=== PATIENT | female | born 1995 | race Caucasian/White ===

== ENCOUNTER 2020-07-03 09:03 | Emergency (ER) | payer OTHER ==
[~2020-07-03] VITALS: Ht 160 cm; Wt 127.0 kg
[2020-07-03 09:13] VITALS: BP 110/62
--- NOTE | 2020-07-03 09:28 | NUR ---
25/F presents to ED with c/o abdominal pain, nauea,vomiting and diarrhea x3 weeks. Patient states the pain is an intermittent 7/10 dull/burning pain in her mid upper abdomen radiating to right upper quadrant. Patient states she has noticed streaks of blood in her stool and when she wipes. Patient denies taking anything for pain, states she has taken Tums and Pepto with minimal relief. Patient was seen at urgent care yesterday and was prescribed Zofran which provided some relief. RUQ is tender to touch, patient states she had two episodes of vomiting and one episode of diarrhea today after having a protein shake. Patient denies dysuria, hematuria, fever or chills.
[2020-07-03] MEDS: ONDANSETRON 4 MG ODT PO ONE (09:36)
--- NOTE | 2020-07-03 09:44 | NUR ---
Ultrasound at bedside.
[2020-07-03 09:46] LABS: BASOPHILS # (AUTO) 0.1 K/uL (0.00-0.22); BASOPHILS % (AUTO) 0.9 % (0.0-2.0); EOSINOPHILS # (AUTO) 0.1 K/uL (0-0.4); EOSINOPHILS % (AUTO) 1.8 % (0.0-4.0); HEMOGLOBIN 13.3 g/dL (12.0-16.0); LYMPHOCYTES # (AUTO) 2.1 K/uL (2.5-16.5); LYMPHOCYTES % (AUTO) 27.6 % (20.5-51.1); MEAN CORPUSCULAR HEMOGLOBIN 26 pg (27-31); MEAN CORPUSCULAR HGB CONC 33 g/dL (33-37); MEAN CORPUSCULAR VOLUME 77.5 fL (80-94); MONOCYTES # (AUTO) 0.4 K/uL (0.8-1.0); MONOCYTES % (AUTO) 5.9 % (1.7-9.3); NEUTROPHILS # (AUTO) 4.7 K/uL (1.8-7.7); NEUTROPHILS % (AUTO) 63.8 % (42.2-75.2); PLATELET COUNT (AUTO) 285 K/uL (140-450); RED BLOOD CELL COUNT(AUTO) 5.16 MIL/uL (4.20-5.40); WHITE BLOOD COUNT (AUTO) 7.4 K/uL (4.8-10.8)
--- NOTE | 2020-07-03 09:48 | NUR ---
Ultrasound at bedside
[2020-07-03 10:03] LABS: ALBUMIN 3.5 g/dL (3.4-5.0); ANION GAP 10.4 (8-16); CARBON DIOXIDE 26.7 mmol/L (21-32); CREATININE 0.7 mg/dL (0.6-1.3); POTASSIUM 4.1 mmol/L (3.5-5.1); TOTAL BILIRUBIN 0.2 mg/dL (0.0-1.0)
[2020-07-03 10:24] LABS: BILIRUBIN,URINE NEGATIVE (NEGATIVE); BLOOD, URINE TRACE-I (NEGATIVE); COLOR,URINE YELLOW (YELLOW); LEUKOCYTE ESTERASE ,URINE 2+ (NEGATIVE); NITRITE, URINE NEGATIVE (NEGATIVE); UGLUCOSE NEGATIVE (NEGATIVE)
[2020-07-03 10:28] LABS: APPEARANCE,URINE SLIGHTLY HAZY (CLEAR)
[2020-07-03 10:29] LABS: RBC,URINE 0-5 /HPF (0-5)
--- NOTE | 2020-07-03 11:00 | NUR ---
PATIENT RESTING IN BED, AWAITING ULTRASOUND RESULTS.
[2020-07-03] MEDS ORDERED: CIPR500T4 PO (11:19)
[2020-07-03] MEDS ORDERED: IBUP-2213 PO (11:19)
[2020-07-03] MEDS ORDERED: OMEP40EC24 PO (11:19)
--- NOTE | 2020-07-03 11:24 | NUR ---
Patient discharged with v/s stable. Written and verbal after care instructions given and explained. Patient alert, oriented and verbalized understanding of instructions. Ambulatory with steady gait. All questions addressed prior to discharge. ID band removed. Patient advised to follow up with PMD. Rx of Ciprofloxacin, Ibuprofen, Prilosec given. Patient educated on indication of medication including possible reaction and side effects. Opportunity to ask questions provided and answered.
[2020-07-03 11:28] VITALS: BP 137/68
== END 2020-07-03 11:24 | disposition home or self-care (01) ==
LOC: MED 09:03
DX: N39.0 Urinary tract infection, site not specified (principal); R11.2 Nausea with vomiting, unspecified; K92.1 Melena
CPT/HCPCS: 36415; 76705; 80053; 81001; 81025; 83690; 85025; 87086; 99284; Q0162

== ENCOUNTER 2020-11-06 11:22 | Day surgery (SDC) | payer OTHER ==
[~2020-11-06 11:22] MED LIST: CIPR500T4 PO; IBUP-2213 PO; OMEP40EC24 PO
[2020-11-06] MEDS ORDERED: fentaNYL citrate 0.05 MG/ML VIAL ONE (13:26)
[2020-11-06] MEDS ORDERED: MIDAZOLAM 5 MG/5 ML VIAL ONE (13:26)
[2020-11-06] MEDS ORDERED: diphenhydrAMINE 50 MG/ML VIAL ONE (13:26)
[2020-11-06] MEDS ORDERED: LIDOCAINE 2% 100 MG/5 ML UJET TP ONE (13:27)
[2020-11-06] MEDS ORDERED: MIDAZOLAM 2 MG/2 ML VIAL IVP ONE (14:00)
[2020-11-06] MEDS ORDERED: fentaNYL citrate 0.05 MG/ML VIAL IVP ONE (14:00)
== END 2020-11-06 14:53 | disposition home or self-care (01) ==
LOC: MDS 11:22 → MFCC 12:08 → MDS 14:53
PROVIDERS: ATTEND Internal Medicine Gastroenterology
DX: K52.9 Noninfective gastroenteritis and colitis, unspecified (principal); K62.5 Hemorrhage of anus and rectum; K21.9 Gastro-esophageal reflux disease without esophagitis; K42.9 Umbilical hernia without obstruction or gangrene; Z79.84 Long term (current) use of oral hypoglycemic drugs; Z79.899 Other long term (current) drug therapy
CPT/HCPCS: 45380; J2250; J3010; 88305; J1200